=== PATIENT | female | born 1985 | race Native Hawaiian/Other Pacific Islander ===

== ENCOUNTER 2022-08-30 08:17 | Emergency (ER) | payer SELFPAY ==
[2022-08-30] MEDS ORDERED: ORPHENADRINE 60 MG/2 ML (NORFLEX) AMP (ED ONLY) IM STA (08:36)
[2022-08-30] MEDS ORDERED: methylPREDNISolone 80 MG/ML (DEPO MEDROL) VIAL IM STA (08:36)
[2022-08-30] MEDS ORDERED: morphine INJ 10 MG/ML 1ML (SYR OR VIAL) IVP STA (08:41)
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
[2022-08-30 08:46] LABS: BILIRUBIN,URINE NEGATIVE (NEGATIVE); CLARITY,URINE SL CLOUDY; COLOR,URINE YELLOW; GLUCOSE, URINE (UA) NEGATIVE (NEGATIVE); KETONES,URINE NEGATIVE (NEGATIVE); LEUKOCYTE ESTERASE ,URINE TRACE (NEGATIVE); NITRITE,URINE NEGATIVE (NEGATIVE); PROTEIN,URINE NEGATIVE (NEGATIVE)
[2022-08-30 08:53] LABS: BACTERIA,URINE TRACE /HPF; RBC,URINE 0-2 /HPF; SQUAMOUS EPITHELIAL CELL,UR 25-50 /HPF
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
[2022-08-30] MEDS ORDERED: IBUP-1780 PO (09:47)
[2022-08-30] MEDS ORDERED: TIZA4CAP8 PO (09:47)
[2022-08-30] MEDS ORDERED: LIDO700A45 TP (09:47)
[2022-08-30] MEDS ORDERED: ACHD5005 PO (09:47)
[2022-08-30 09:48] VITALS: BP 110/85
== END 2022-08-30 09:49 | disposition home or self-care (01) ==
LOC: ER FS 08:19
DX: M54.42 Lumbago with sciatica, left side (principal); G89.29 Other chronic pain; F17.290 Nicotine dependence, other tobacco product, uncomplicated; Z28.310 Unvaccinated for COVID-19; V89.2XXA Person injured in unspecified motor-vehicle accident, traffic, initial encounter; Y92.410 Unspecified street and highway as the place of occurrence of the external cause
CPT/HCPCS: 72128; 72131; 81000; 84703